=== PATIENT | female | born 1970 | race Caucasian/White ===

== ENCOUNTER 2021-08-15 12:15 | Emergency (ER) | payer MEDICARE, OTHER ==
[~2021-08-15 12:15] MED LIST: HCTZ25 MG PO
[2021-08-15 13:34] LABS: BASOPHIL 0.4 % (0-2); EOSINOPHIL 0.3 % (0-5); HCT 43.7 % (37.0-47.0); HGB 13.8 g/dl (12.5-16.0); LYMPHOCYTE 30.9 % (15-48); MCH 29.1 pg (25.0-31.0); MCHC 31.6 g/dL (32.0-36.0); MONOCYTE 9.5 % (0-12); NEUTROPHIL 57.9 % (41-80); NRBC 0; PLT 250 K/uL (150-400); RBC 4.75 M/uL (4.20-5.40); RDW 14.6 % (11.5-14.0); WBC 11.1 K/uL (4.0-10.5)
[2021-08-15] MEDS ORDERED: TESSALON PERLE100 MG PO (13:54)
[2021-08-15] MEDS ORDERED: VENTOLIN HFA IN18 GM INH (13:54)
[2021-08-15] MEDS ORDERED: ZPAK PO (13:54)
[2021-08-15 14:51] LABS: LACTIC ACID 0.9 mmol/L (0.4-1.9)
[2021-08-15 15:19] LABS: BUN/CREAT RATIO (CALC) 12.5 RATIO; CREATININE 0.8 mg/dL (0.51-0.95); POTASSIUM 3.9 mmol/L (3.5-5.1)
== END 2021-08-15 15:45 | disposition home or self-care (01) ==
LOC: FER 12:15
PROVIDERS: Nurse Practitioner Family
DX: U07.1 COVID-19 (principal); J12.82 Pneumonia due to coronavirus disease 2019; I10 Essential (primary) hypertension; Z88.8 Allergy status to other drugs, medicaments and biological substances
CPT/HCPCS: 36415; 71045; 80048; 83605; 84145; 85025; J7030

== ENCOUNTER 2021-11-01 06:04 | Emergency (ER) | payer MEDICARE, OTHER ==
[~2021-11-01 06:04] MED LIST changes: +TESSALON PERLE100 MG PO; +VENTOLIN HFA IN18 GM INH; +ZPAK PO
[2021-11-01 06:41] LABS: BASOPHIL 0.4 % (0-2); EOSINOPHIL 1.3 % (0-5); HCT 37.4 % (37.0-47.0); HGB 11.6 g/dl (12.5-16.0); LYMPHOCYTE 12.5 % (15-48); MCH 27.9 pg (25.0-31.0); MCV 89.9 fL (78.0-100.0); MONOCYTE 7.5 % (0-12); MPV 9.8 fL (6.0-9.5); NEUTROPHIL 77.7 % (41-80); NRBC 0; PLT 453 K/uL (150-400); RBC 4.16 M/uL (4.20-5.40); RDW 14.7 % (11.5-14.0); WBC 11.4 K/uL (4.0-10.5)
[2021-11-01 07:34] LABS: ALBUMIN 3.4 g/dL (3.4-5.0); BILIRUBIN - TOTAL 0.5 mg/dL (0.2-1.0); BUN/CREAT RATIO (CALC) 18.3 RATIO; CREATININE 0.82 mg/dL (0.51-0.95); GLOBULIN (CALCULATION) 4.1 g/dL; POTASSIUM 3.5 mmol/L (3.5-5.1); TOTAL PROTEIN 7.5 g/dL (6.4-8.2)
[2021-11-01 08:16] LABS: BILIRUBIN NEGATIVE (NEGATIVE); BLOOD NEGATIVE Ery/uL (NEGATIVE); CLARITY CLEAR (CLEAR); COLOR YELLOW (YELLOW); GLUCOSE (U) NORMAL (NORMAL); LEUKOCYTES NEGATIVE Leu/uL (NEGATIVE); NITRITE NEGATIVE (NEGATIVE); PROTEIN NEGATIVE (NEGATIVE); SPECIFIC GRAVITY 1.025 (1.001-1.030)
[2021-11-01 08:22] LABS: HCG (URINE) SCREEN NEGATIVE (NEGATIVE)
== END 2021-11-01 13:40 | disposition other institution (70) ==
LOC: FER 06:04
PROVIDERS: Emergency Medicine
DX: N13.2 Hydronephrosis with renal and ureteral calculous obstruction (principal); R19.09 Other intra-abdominal and pelvic swelling, mass and lump; I10 Essential (primary) hypertension; Z88.8 Allergy status to other drugs, medicaments and biological substances; Z79.899 Other long term (current) drug therapy
CPT/HCPCS: 36415; 80053; 81003; 83690; 84145; 84703; 85025; J1170; J1885; J2405; J7030; Q9967

== ENCOUNTER → 2021-12-27 | Day surgery (SDC) | payer MEDICARE, OTHER ==
[~2021-12-27] VITALS: Ht 172.7 cm; Wt 85.7 kg
[~2021-12-27] MED LIST changes: +BENADRYL25 MG PO; +IMODIUM2 MG PO; +PERCOCET 5-3251 EACH PO; +TYLENOL PM EX-1 EACH PO
== END | disposition home or self-care (01) ==
LOC: FAS 10:58
DX: C18.9 Malignant neoplasm of colon, unspecified (principal); Z88.5 Allergy status to narcotic agent; Z88.8 Allergy status to other drugs, medicaments and biological substances
CPT/HCPCS: 71045; 76000; C1788; J0690; J1644; J2250; J2704; J3010; J7120